=== PATIENT | female | born 1955 | race Caucasian/White ===

== ENCOUNTER 2021-03-07 21:17 | Emergency (ER) | payer MEDICARE ==
[~2021-03-07] VITALS: Ht 157.5 cm; Wt 53.6 kg
[2021-03-07 23:08] VITALS: BP 135/65
[2021-03-07 23:16] LABS: BASOPHILS % (AUTO) 0.4 % (0.0-2.0); HEMATOCRIT 33.8 % (36-46); HEMOGLOBIN 11.1 g/dL (12.0-16.0); LYMPHOCYTES # (AUTO) 2.6 K/uL (1.0-4.8); LYMPHOCYTES % (AUTO) 29.1 % (22.0-44.0); MEAN CORPUSCULAR HEMOGLOBIN 32.8 pg (26.0-34.0); MEAN CORPUSCULAR HGB CONC 32.8 G/dL (31.0-37.0); MEAN CORPUSCULAR VOLUME 100 fL (80-100); MONOCYTES # (AUTO) 0.7 K/uL (0.1-1.0); MONOCYTES % (AUTO) 7.5 % (2.0-9.0); NEUTROPHILS # (AUTO) 5.4 K/uL (1.8-7.7); PLATELET COUNT (AUTO) 187 K/uL (150-450); RED BLOOD CELL COUNT(AUTO) 3.38 MIL/uL (4.00-5.20); RED CELL DISTRIBUTION WIDTH 13.7 % (11.5-14.5)
[2021-03-07 23:26] LABS: APPEARANCE,URINE CLEAR (CLEAR); BILIRUBIN,URINE NEGATIVE (NEGATIVE); GLUCOSE, URINE (UA) NEGATIVE (NEGATIVE); KETONES,URINE NEGATIVE (NEGATIVE); LEUKOCYTE ESTERASE ,URINE MODERATE (NEGATIVE); NITRATE,URINE NEGATIVE (NEGATIVE); OCCULT BLOOD,URINE SMALL (NEGATIVE); PH,URINE 6.5 (5.0-8.0); PROTEIN,URINE TRACE (NEGATIVE); UROBILINOGEN,URINE 0.2 mg/dL (<=1.0)
[2021-03-07 23:29] LABS: CALCIUM, TOTAL 8.6 mg/dL (8.8-10.5); CREATININE 1.36 mg/dL (0.60-1.30); POTASSIUM 3.1 mmol/L (3.5-5.1)
[2021-03-07 23:31] LABS: AMPHET/METH SCREEN,URINE NEGATIVE (NEGATIVE); BARBITURATE SCREEN, URINE NEGATIVE (NEGATIVE); BENZODIAZEPINES SCREEN,URINE NEGATIVE (NEGATIVE); CANNABINOID SCREEN,URINE NEGATIVE (NEGATIVE); COCAINE SCREEN,URINE NEGATIVE (NEGATIVE); METHADONE SCREEN, URINE NEGATIVE (NEGATIVE); OPIATE SCREEN,URINE NEGATIVE (NEGATIVE)
[2021-03-07 23:33] LABS: PHENCYCLIDINE SCREEN,URINE NEGATIVE (NEGATIVE)
[2021-03-07 23:35] LABS: BILIRUBIN,TOTAL 0.6 mg/dL (0.1-1.0); TOTAL PROTEIN, SERUM 7.6 g/dL (6.4-8.2)
[2021-03-07 23:56] LABS: BACTERIA,URINE Few /HPF (None Seen)
[2021-03-08] MEDS ORDERED: POTASSIUM CHLORIDE 20 MEQ ER TABLET PO ONE (00:15)
[2021-03-08] MEDS ORDERED: CEPHALEXIN MONOHYDRATE 500 MG CAPSULE PO ONE (00:15)
== END 2021-03-08 02:16 | disposition home or self-care (01) ==
LOC: EMS 21:17
DX: N39.0 Urinary tract infection, site not specified (principal); F10.129 Alcohol abuse with intoxication, unspecified; Y90.9 Presence of alcohol in blood, level not specified
CPT/HCPCS: 36415; 80053; 80307; 81001; 85025; 87086; 99283; G0480

== ENCOUNTER 2021-03-14 11:44 | Inpatient (IN) | payer MEDICARE ==
[~2021-03-14] VITALS: Ht 157.5 cm; Wt 61.5 kg
[2021-03-14] MEDS ORDERED: ACETAMINOPHEN 325 MG TABLET PO ONE (13:00)
[2021-03-14] MEDS ORDERED: CefTRIAXone 1 GM/DEXTROSE 50 ML IV ONE (13:00)
[2021-03-14] MEDS ORDERED: SODIUM CHLORIDE 0.9% 1,850 ML IV ONE (13:00)
[2021-03-14 13:05] LABS: BASOPHILS % (AUTO) 0.4 % (0.0-2.0); EOSINOPHILS % (AUTO) 0.1 % (1.0-6.0); HEMATOCRIT 29.2 % (36-46); HEMOGLOBIN 9.3 g/dL (12.0-16.0); LYMPHOCYTES # (AUTO) 1.9 K/uL (1.0-4.8); LYMPHOCYTES % (AUTO) 11.3 % (22.0-44.0); MEAN CORPUSCULAR HEMOGLOBIN 32.6 pg (26.0-34.0); MEAN CORPUSCULAR VOLUME 102 fL (80-100); MONOCYTES # (AUTO) 1.7 K/uL (0.1-1.0); MONOCYTES % (AUTO) 10.4 % (2.0-9.0); NEUTROPHILS # (AUTO) 12.9 K/uL (1.8-7.7); NEUTROPHILS % (AUTO) 77.8 % (40.0-70.0); PLATELET COUNT (AUTO) 166 K/uL (150-450); RED BLOOD CELL COUNT(AUTO) 2.87 MIL/uL (4.00-5.20); RED CELL DISTRIBUTION WIDTH 15.4 % (11.5-14.5)
[2021-03-14 13:21] LABS: ALBUMIN 2.9 g/dL (3.4-5.0); CREATININE 1.57 mg/dL (0.60-1.30); TOTAL PROTEIN, SERUM 7.3 g/dL (6.4-8.2)
[2021-03-14 13:24] LABS: LACTIC ACID 1.6 mmol/L (0.4-2.0)
[2021-03-14 13:25] LABS: POTASSIUM 2.6 mmol/L (3.5-5.1)
[2021-03-14] MEDS ORDERED: POTASSIUM CHL 10 MEQ/WATER 50 ML IV ONE (13:45)
[2021-03-14] MEDS ORDERED: POTASSIUM CHLORIDE 20 MEQ ER TABLET PO ONE (13:45)
[2021-03-14 14:59] LABS: COVID AG,FIA SOURCE NASOPHARYNGEAL
[2021-03-14] MEDS ORDERED: ALBUTEROL SULFATE 2.5 MG/0.5 ML NEB SOLUTION NEB PRN (16:30)
[2021-03-14] MEDS ORDERED: MAGNESIUM HYDROXIDE SUSPENSION 30 ML UDCUP PO PRN (16:30)
[2021-03-14] MEDS ORDERED: BISACODYL 10 MG RECTAL RECTAL SUPPOSITORY PR PRN (16:30)
[2021-03-14] MEDS ORDERED: ZOLPIDEM TARTRATE 5 MG TABLET PO PRN (16:30)
[2021-03-14] MEDS ORDERED: IPRATROPIUM BROMIDE 0.5 MG/2.5 ML NEB SOLUTION NEB PRN (16:30)
[2021-03-14] MEDS ORDERED: MORPHINE SULFATE 2 MG/ML SYRINGE IVP PRN (16:30)
[2021-03-14] MEDS ORDERED: ACETAMINOPHEN 325 MG TABLET PO PRN (16:30)
[2021-03-14] MEDS ORDERED: ONDANSETRON HCL 4 MG/2 ML VIAL IVP PRN (16:30)
[2021-03-14] MEDS ORDERED: HYDROCODONE/ACETAMINOPHEN 5-325 MG TABLET PO PRN (16:30)
[2021-03-14] MEDS ORDERED: MYCO250C27 PO (16:48)
[2021-03-14] MEDS ORDERED: TACR1CAP12 PO (16:48)
[2021-03-14] MEDS: DOCUSATE SODIUM 100 MG CAPSULE PO SCH (20:17)
[2021-03-14 21:20] VITALS: BP 99/46
[2021-03-14] MEDS ORDERED: SODIUM CHLORIDE 0.9% 500 ML IV ONE (23:00)
[2021-03-14] MEDS: HEPARIN SODIUM,PORCINE 5,000 UNITS/ML VIAL SQ SCH (23:20)
[2021-03-14] MEDS ORDERED: PNEUMOCOCCAL VACCINE POLYVALENT 0.5 ML VIAL [PPSV23] IM. ONE (23:30)
[2021-03-15 00:11] VITALS: BP 94/56
[2021-03-15 04:09] VITALS: BP 117/65
[2021-03-15 07:05] LABS: CALCIUM, TOTAL 7.1 mg/dL (8.8-10.5); CREATININE 1.51 mg/dL (0.60-1.30)
[2021-03-15 07:21] VITALS: BP 122/68
[2021-03-15] MEDS: DOCUSATE SODIUM 100 MG CAPSULE PO SCH ×2 (07:54→20:13)
[2021-03-15] MEDS: HEPARIN SODIUM,PORCINE 5,000 UNITS/ML VIAL SQ SCH ×2 (07:54→16:00)
[2021-03-15] MEDS: TACROLIMUS 5 MG CAPSULE PO SCH ×3 (10:24→20:12)
[2021-03-15] MEDS: MYCOPHENOLATE MOFETIL 250 MG CAPSULE PO SCH ×2 (10:24→20:12)
[2021-03-15 11:11] VITALS: BP 102/64
[2021-03-15] MEDS ORDERED: POTASSIUM CHLORIDE 10% 40 MEQ/30 ML LIQUID UDCUP PEG PRN (13:45)
[2021-03-15] MEDS ORDERED: POTASSIUM CHLORIDE 10% 40 MEQ/30 ML LIQUID UDCUP PO PRN (13:45)
[2021-03-15] MEDS ORDERED: POTASSIUM CHL 10 MEQ/WATER 50 ML IV PRN ×4 (13:45)
[2021-03-15] MEDS ORDERED: POTASSIUM CHLORIDE 20 MEQ ER TABLET PO PRN (13:45)
[2021-03-15] MEDS ORDERED: TACR5CAP3 PO (13:50)
[2021-03-15] MEDS: POTASSIUM CHLORIDE 20 MEQ ER TABLET PO PRN (13:53)
[2021-03-15 15:30] VITALS: BP 102/55
[2021-03-15 16:22] LABS: BASOPHILS % (AUTO) 0.2 % (0.0-2.0); EOSINOPHILS % (AUTO) 0.9 % (1.0-6.0); HEMATOCRIT 25.8 % (36-46); HEMOGLOBIN 8.4 g/dL (12.0-16.0); LYMPHOCYTES # (AUTO) 2.3 K/uL (1.0-4.8); MEAN CORPUSCULAR HEMOGLOBIN 32.8 pg (26.0-34.0); MEAN CORPUSCULAR HGB CONC 32.8 G/dL (31.0-37.0); MEAN CORPUSCULAR VOLUME 100 fL (80-100); MONOCYTES % (AUTO) 8.7 % (2.0-9.0); NEUTROPHILS # (AUTO) 7.9 K/uL (1.8-7.7); NEUTROPHILS % (AUTO) 70.2 % (40.0-70.0); PLATELET COUNT (AUTO) 141 K/uL (150-450); RED BLOOD CELL COUNT(AUTO) 2.57 MIL/uL (4.00-5.20); RED CELL DISTRIBUTION WIDTH 15.6 % (11.5-14.5)
[2021-03-15 16:40] LABS: CALCIUM, TOTAL 7.3 mg/dL (8.8-10.5); CREATININE 1.45 mg/dL (0.60-1.30); POTASSIUM 3.7 mmol/L (3.5-5.1)
[2021-03-15 16:47] LABS: ALBUMIN 2.2 g/dL (3.4-5.0); BILIRUBIN,TOTAL 0.5 mg/dL (0.1-1.0); TOTAL PROTEIN, SERUM 6.2 g/dL (6.4-8.2)
[2021-03-15] MEDS: CefTRIAXone 1 GM/DEXTROSE 50 ML IV SCH (17:45)
[2021-03-15 18:42] LABS: APPEARANCE,URINE CLOUDY (CLEAR); BILIRUBIN,URINE NEGATIVE (NEGATIVE); GLUCOSE, URINE (UA) NEGATIVE (NEGATIVE); KETONES,URINE NEGATIVE (NEGATIVE); LEUKOCYTE ESTERASE ,URINE MODERATE (NEGATIVE); NITRATE,URINE NEGATIVE (NEGATIVE); OCCULT BLOOD,URINE TRACE (NEGATIVE); PH,URINE 6.5 (5.0-8.0); PROTEIN,URINE POS 1+ (NEGATIVE); UROBILINOGEN,URINE 0.2 mg/dL (<=1.0)
[2021-03-15] MEDS: POTASSIUM CHLORIDE 10 MEQ in SODIUM CHLORIDE 0.45% 1,000 ML IV SCH (18:46)
[2021-03-15 18:54] LABS: BACTERIA,URINE Few /HPF (None Seen); SQUAMOUS EPITHELIAL CELL,UR Few /LPF (None Seen); WBC,URINE 26-50 /HPF (0-5)
[2021-03-15 19:51] VITALS: BP 99/50
[2021-03-16 00:37] VITALS: BP 113/72
[2021-03-16 05:57] VITALS: BP 127/67
[2021-03-16 06:08] LABS: BASOPHILS % (AUTO) 0.2 % (0.0-2.0); EOSINOPHILS % (AUTO) 2.5 % (1.0-6.0); HEMATOCRIT 26.8 % (36-46); HEMOGLOBIN 8.9 g/dL (12.0-16.0); LYMPHOCYTES # (AUTO) 2.7 K/uL (1.0-4.8); LYMPHOCYTES % (AUTO) 30.9 % (22.0-44.0); MEAN CORPUSCULAR HEMOGLOBIN 33.4 pg (26.0-34.0); MEAN CORPUSCULAR HGB CONC 33.1 G/dL (31.0-37.0); MEAN CORPUSCULAR VOLUME 101 fL (80-100); MONOCYTES % (AUTO) 11.4 % (2.0-9.0); NEUTROPHILS # (AUTO) 4.8 K/uL (1.8-7.7); PLATELET COUNT (AUTO) 145 K/uL (150-450); RED BLOOD CELL COUNT(AUTO) 2.66 MIL/uL (4.00-5.20); RED CELL DISTRIBUTION WIDTH 15.7 % (11.5-14.5)
[2021-03-16 06:29] LABS: HEMOGLOBIN A1C 4.8 % (3.8-5.6)
[2021-03-16 06:45] LABS: BILIRUBIN,TOTAL 0.3 mg/dL (0.1-1.0); CALCIUM, TOTAL 7.5 mg/dL (8.8-10.5); CREATININE 1.43 mg/dL (0.60-1.30); MAGNESIUM 1.7 mg/dL (1.80-2.40); PHOSPHORUS 2.4 mg/dL (2.5-4.9); POTASSIUM 3.8 mmol/L (3.5-5.1); TOTAL PROTEIN, SERUM 6.1 g/dL (6.4-8.2)
[2021-03-16 07:17] VITALS: BP 122/68
[2021-03-16] MEDS: HEPARIN SODIUM,PORCINE 5,000 UNITS/ML VIAL SQ SCH ×3 (08:00→16:00)
[2021-03-16] MEDS: DOCUSATE SODIUM 100 MG CAPSULE PO SCH ×2 (08:24→20:14)
[2021-03-16] MEDS ORDERED: SODIUM,POTASSIUM PHOSPHATES POWDER PACKET PO ONE (08:30)
[2021-03-16] MEDS ORDERED: MAGNESIUM SULFATE 1 GM in DEXTROSE 5%-WATER 50 ML IV ONE (08:30)
[2021-03-16] MEDS: TACROLIMUS 5 MG CAPSULE PO SCH ×3 (08:31→20:10)
[2021-03-16] MEDS: MYCOPHENOLATE MOFETIL 250 MG CAPSULE PO SCH ×2 (08:31→20:10)
[2021-03-16] MEDS: POTASSIUM CHLORIDE 10 MEQ in SODIUM CHLORIDE 0.45% 1,000 ML IV SCH (08:32)
[2021-03-16] MEDS: LOPERAMIDE HCL 2 MG/15 ML SUSPENSION UDCUP PO PRN ×2 (09:24→15:50)
[2021-03-16] MEDS ORDERED: POTASSIUM CHLORIDE IV SCH (10:00)
[2021-03-16] MEDS ORDERED: DEXTROSE 5% IV SCH (10:00)
[2021-03-16] MEDS ORDERED: WATER IV SCH (10:00)
[2021-03-16] MEDS ORDERED: SODIUM BICARBONATE IV SCH (10:00)
[2021-03-16 11:22] VITALS: BP 126/72
[2021-03-16 15:31] VITALS: BP 114/61
[2021-03-16] MEDS: CefTRIAXone 1 GM/DEXTROSE 50 ML IV SCH (18:03)
[2021-03-16 19:58] VITALS: BP 124/70
[2021-03-17 00:37] VITALS: BP 125/67
[2021-03-17 04:44] VITALS: BP 136/74
[2021-03-17 06:16] LABS: BASOPHILS % (AUTO) 0.4 % (0.0-2.0); EOSINOPHILS % (AUTO) 2.5 % (1.0-6.0); HEMATOCRIT 29.3 % (36-46); HEMOGLOBIN 9.6 g/dL (12.0-16.0); LYMPHOCYTES # (AUTO) 2.9 K/uL (1.0-4.8); LYMPHOCYTES % (AUTO) 39.9 % (22.0-44.0); MEAN CORPUSCULAR HEMOGLOBIN 33.1 pg (26.0-34.0); MEAN CORPUSCULAR HGB CONC 32.7 G/dL (31.0-37.0); MEAN CORPUSCULAR VOLUME 101 fL (80-100); MONOCYTES # (AUTO) 0.7 K/uL (0.1-1.0); NEUTROPHILS # (AUTO) 3.5 K/uL (1.8-7.7); NEUTROPHILS % (AUTO) 48.2 % (40.0-70.0); PLATELET COUNT (AUTO) 162 K/uL (150-450); RED CELL DISTRIBUTION WIDTH 15.9 % (11.5-14.5)
[2021-03-17 06:59] LABS: ALBUMIN 2.2 g/dL (3.4-5.0); BILIRUBIN,TOTAL 0.3 mg/dL (0.1-1.0); CALCIUM, TOTAL 8.1 mg/dL (8.8-10.5); CREATININE 1.52 mg/dL (0.60-1.30); MAGNESIUM 1.8 mg/dL (1.80-2.40); PHOSPHORUS 3.3 mg/dL (2.5-4.9); POTASSIUM 3.4 mmol/L (3.5-5.1); TOTAL PROTEIN, SERUM 6.7 g/dL (6.4-8.2)
[2021-03-17 07:34] VITALS: BP 135/76
[2021-03-17] MEDS: DOCUSATE SODIUM 100 MG CAPSULE PO SCH (08:02)
[2021-03-17] MEDS: TACROLIMUS 5 MG CAPSULE PO SCH (08:02)
[2021-03-17] MEDS: MYCOPHENOLATE MOFETIL 250 MG CAPSULE PO SCH (08:03)
[2021-03-17] MEDS: POTASSIUM CHLORIDE 20 MEQ ER TABLET PO PRN (08:03)
[2021-03-17] MEDS: HEPARIN SODIUM,PORCINE 5,000 UNITS/ML VIAL SQ SCH ×2 (08:04)
[2021-03-17] MEDS ORDERED: POTASSIUM CHLORIDE 10 MEQ ER TABLET PO ONE (08:30)
[2021-03-17 11:13] VITALS: BP 124/74
[2021-03-17] MEDS: LOPERAMIDE HCL 2 MG/15 ML SUSPENSION UDCUP PO PRN (15:06)
== END 2021-03-17 15:35 | disposition home or self-care (01) | DRG 872 ==
LOC: EMS 11:46 → 5S 18:34 → 5N 03-15 00:33
PROVIDERS: ADMIT Hospitalist; ATTEND Hospitalist
PROC: 3E0234Z Introduction of Serum, Toxoid and Vaccine into Muscle, Percutaneous Approach (ICD-10-PCS; principal; 2021-03-14)
DX: A41.9 Sepsis, unspecified organism (principal); N12 Tubulo-interstitial nephritis, not specified as acute or chronic; E87.2 Acidosis; Z94.4 Liver transplant status; D84.9 Immunodeficiency, unspecified; N17.9 Acute kidney failure, unspecified; Z94.0 Kidney transplant status; E11.65 Type 2 diabetes mellitus with hyperglycemia; N18.2 Chronic kidney disease, stage 2 (mild); E11.22 Type 2 diabetes mellitus with diabetic chronic kidney disease; E87.6 Hypokalemia; F17.210 Nicotine dependence, cigarettes, uncomplicated; F10.10 Alcohol abuse, uncomplicated; Z20.822 Contact with and (suspected) exposure to COVID-19; Z87.440 Personal history of urinary (tract) infections; Z79.899 Other long term (current) drug therapy; Z23 Encounter for immunization
CPT/HCPCS: 71045; 76700; 80048; 80053; 80197; 81001; 83036; 83605; 83735; 84100; 84132; 84484; 85025; 87040; 87077; 87086; 87186; 87205; 87426; 97116; 97161; 97530; 99285; A9575; J0696; J1644; J3475; J3480; J3490; J7030; J7040; J7060; J7507; J7517; 36415-L1; 36415-TC; U0003

== ENCOUNTER 2021-04-13 09:12 | Emergency (ER) | payer MEDICARE ==
[~2021-04-13] VITALS: Ht 157.5 cm; Wt 68.2 kg
[~2021-04-13 09:12] MED LIST: MYCO250C27 PO; TACR5CAP3 PO
[2021-04-13] MEDS ORDERED: ACETAMINOPHEN 500 MG TABLET PO ONE (09:30)
[2021-04-13] MEDS ORDERED: DICLOFENAC SODIUM 1% 100 GM GEL [4GM] TP ONE (09:30)
[2021-04-13] MEDS ORDERED: LIDOCAINE 5% TRANSDERMAL PATCH TD ONE (09:30)
[2021-04-13 09:47] LABS: BASOPHILS % (AUTO) 0.6 % (0.0-2.0); EOSINOPHILS % (AUTO) 1.4 % (1.0-6.0); HEMATOCRIT 36.7 % (36-46); HEMOGLOBIN 11.9 g/dL (12.0-16.0); LYMPHOCYTES # (AUTO) 2.7 K/uL (1.0-4.8); LYMPHOCYTES % (AUTO) 29.3 % (22.0-44.0); MEAN CORPUSCULAR HEMOGLOBIN 33.5 pg (26.0-34.0); MEAN CORPUSCULAR HGB CONC 32.3 G/dL (31.0-37.0); MEAN CORPUSCULAR VOLUME 104 fL (80-100); MONOCYTES # (AUTO) 0.7 K/uL (0.1-1.0); MONOCYTES % (AUTO) 8.2 % (2.0-9.0); NEUTROPHILS # (AUTO) 5.5 K/uL (1.8-7.7); NEUTROPHILS % (AUTO) 60.5 % (40.0-70.0); PLATELET COUNT (AUTO) 194 K/uL (150-450); RED BLOOD CELL COUNT(AUTO) 3.54 MIL/uL (4.00-5.20); RED CELL DISTRIBUTION WIDTH 18.9 % (11.5-14.5)
[2021-04-13 11:09] LABS: POTASSIUM 4.2 mmol/L (3.5-5.1)
[2021-04-13 11:10] LABS: ALBUMIN 2.8 g/dL (3.4-5.0); BILIRUBIN,TOTAL 0.5 mg/dL (0.1-1.0); CREATININE 1.53 mg/dL (0.60-1.30); TOTAL PROTEIN, SERUM 6.7 g/dL (6.4-8.2)
[2021-04-13 14:25] VITALS: BP 142/85
== END 2021-04-13 14:37 | disposition home or self-care (01) ==
LOC: EMS 09:12
DX: M25.571 Pain in right ankle and joints of right foot (principal); M25.572 Pain in left ankle and joints of left foot; R60.0 Localized edema; F17.210 Nicotine dependence, cigarettes, uncomplicated
CPT/HCPCS: 80053; 85025; 99285